=== PATIENT | male | born 1975 | race Hispanic/Latino ===

== ENCOUNTER 2022-04-07 20:04 | Emergency (ER) | payer OTHER ==
[~2022-04-07] VITALS: Ht 175.3 cm; Wt 92.1 kg
[2022-04-07 20:53] LABS: BASOPHILS % (AUTO) 0.6 % (0.0-5.0); HEMATOCRIT 42.2 % (42-54); LYMPHOCYTES % (AUTO) 36.5 % (21.0-51.0); MEAN CORPUSCULAR HEMOGLOBIN 27.2 pg (27.0-33.0); MEAN CORPUSCULAR HGB CONC 34.1 g/dL (32.0-36.0); MEAN CORPUSCULAR VOLUME 79.6 fL (79-99); MONOCYTES % (AUTO) 8.2 % (3.0-13.0); NEUTROPHILS % (AUTO) 51.7 % (40.0-77.0); PLATELET COUNT (AUTO) 292 K/uL (130-400); RED CELL DISTRIBUTION WIDTH 12.9 % (11.0-15.5); WHITE BLOOD COUNT (AUTO) 6.7 K/uL (4.8-10.8)
[2022-04-07 21:07] LABS: APPEARANCE,URINE CLEAR (CLEAR); BILIRUBIN,URINE NEGATIVE (NEGATIVE); COLOR,URINE YELLOW (YELLOW); GLUCOSE, URINE (UA) >=1000 mg/dL (NEGATIVE); KETONES,URINE NEGATIVE (NEGATIVE); LEUKOCYTE ESTERASE ,URINE NEGATIVE Leu/uL (NEGATIVE); NITRATE,URINE NEGATIVE (NEGATIVE); OCCULT BLOOD,URINE NEGATIVE (NEGATIVE); PROTEIN,URINE NEGATIVE (NEGATIVE); UROBILINOGEN,URINE 0.2 mg/dL (0.2-1.0)
[2022-04-07 21:08] LABS: CREATININE 1.2 mg/dL (0.5-1.5); POTASSIUM 3.9 mmol/L (3.5-5.1)
[2022-04-07 21:12] LABS: SQUAMOUS EPITHELIAL CELL,UR RARE /HPF (0-2); WBC,URINE 0-1 /HPF (0-1)
[2022-04-07 21:13] LABS: ALBUMIN 3.6 g/dL (3.5-5.0); TOTAL PROTEIN, SERUM 8.4 g/dL (6.0-8.3)
[2022-04-07] MEDS ORDERED: METH4TAB3 PO (22:57)
[2022-04-07 23:10] VITALS: BP 140/82
[2022-05-25] MEDS ORDERED: OMEP20CA12 PO (11:12)
[2022-05-25] MEDS ORDERED: METO-391 PO (11:12)
[2022-05-25] MEDS ORDERED: FINE20TA PO (11:12)
[2022-05-25] MEDS ORDERED: LOSA50TA64 PO (11:12)
[2022-05-25] MEDS ORDERED: ROSU20TA31 PO (11:12)
[2022-05-25] MEDS ORDERED: TIRZ2.5P SQ (11:12)
[2022-05-25] MEDS ORDERED: FLUT15.812 NS (11:12)
[2022-05-25] MEDS ORDERED: DAPA5TAB PO (11:12)
[2022-05-25] MEDS ORDERED: LORA-997 PO (11:12)
[2022-05-25] MEDS ORDERED: AEC81 PO (11:12)
[2022-05-28] MEDS ORDERED: NITR0.4T50 SL (10:41)
[2022-05-28] MEDS ORDERED: ALPR1TAB7 PO (10:41)
== END 2022-04-07 23:21 | disposition home or self-care (01) ==
LOC: EDH 20:04
DX: M94.0 Chondrocostal junction syndrome [Tietze] (principal); F41.9 Anxiety disorder, unspecified; F45.8 Other somatoform disorders; I11.0 Hypertensive heart disease with heart failure; I50.9 Heart failure, unspecified; E11.9 Type 2 diabetes mellitus without complications; E78.00 Pure hypercholesterolemia, unspecified
CPT/HCPCS: 36415; 71045; 80053; 81001; 84484; 85025; 93005

== ENCOUNTER → 2022-08-18 | Outpatient (CLI) | payer OTHER ==
[~2022-08-18] MED LIST: AEC81 PO; ALPR1TAB7 PO; AMIO200T44 PO; DAPA5TAB PO; FINE20TA PO; FLUT15.812 NS; FURO20TA6 PO; LORA-997 PO; LOSA50TA64 PO; METO25 PO; OMEP20CA12 PO; ROSU20TA31 PO; TIRZ2.5P SQ
== END | disposition home or self-care (01) ==
LOC: SHCH 08:56
PROVIDERS: ATTEND Student in an Organized Health Care Education/Training Program
DX: I97.130 Postprocedural heart failure following cardiac surgery (principal); I11.0 Hypertensive heart disease with heart failure; I50.9 Heart failure, unspecified; E11.9 Type 2 diabetes mellitus without complications; E78.5 Hyperlipidemia, unspecified
CPT/HCPCS: 93306

== ENCOUNTER 2025-01-11 06:50 | Day surgery (SDC) | payer OTHER ==
[2025-01-07 10:11] VITALS: BP 147/79; PULSE 80; RESP 18; TEMP 97.5
[2025-01-07 10:12] LABS: IMMATURE GRANULOCYTE ABSOLUTE 0.01 K/uL (0-1); NUCLEATED RED BLOOD CELLS 0.0 % (0.0-0.19); PLATELET COUNT (AUTO) 261 K/uL (130-400); RED BLOOD CELL COUNT(AUTO) 5.16 MIL/uL (4.50-6.20); RED CELL DISTRIBUTION WIDTH 14.1 % (11.0-15.5); WHITE BLOOD COUNT (AUTO) 6.8 K/uL (4.8-10.8)
[2025-01-07 10:21] LABS: INR 1.03 (0.85-1.15)
[2025-01-07 10:22] LABS: CREATININE 1.3 mg/dL (0.5-1.3); GLOMERULAR FILTR. RATE CALC 67.0 mL/min (>90); GLUCOSE,RANDOM 112.0 mg/dL (70-105); SODIUM SERUM 136.0 mmol/L (136-145); UREA NITROGEN, BLOOD 25.0 mg/dL (7-18)
[2025-01-07 10:30] LABS: APPEARANCE,URINE CLEAR (CLEAR); GLUCOSE, URINE (UA) >=1000 mg/dL (NEGATIVE); LEUKOCYTE ESTERASE ,URINE NEGATIVE Leu/uL (NEGATIVE); NITRATE,URINE NEGATIVE (NEGATIVE); OCCULT BLOOD,URINE NEGATIVE (NEGATIVE)
[2025-01-07 10:41] LABS: ADD UA MICROSCOPIC YES
--- NOTE | 2025-01-07 11:08 | EKG ---
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
--- NOTE | 2025-01-08 06:25 | HMCIMG ---
EXAM: CR Chest, 1 views. CLINICAL HISTORY: Cough. COMPARISON: None provided. FINDINGS: The lungs show no infiltrate or other acute findings. No pleural effusion or pneumothorax. The cardiomediastinal silhouette is within normal limits. No acute osseous abnormality. Radio-opaque sternal sutures are noted IMPRESSION: 1. No acute cardiopulmonary pathology is evident. - stable as compared to previous scan. /[place]
[2025-01-11] VITALS (9 sets, daily range): BP systolic 105–134; BP diastolic 61–75; PULSE 67–77; RESP 11–14; TEMP 97–97.9
[~2025-01-11] VITALS: Ht 175.3 cm; Wt 97.5 kg
[~2025-01-11 06:50] MED LIST changes: +0.9%NACL 1000ML 1,000 ML IV SCH; -ALPR1TAB7 PO; -AMIO200T44 PO; +ERGO500093 PO; -FLUT15.812 NS; -FURO20TA6 PO; -LORA-997 PO; +NITR0.4T50 SL; -OMEP20CA12 PO; -ROSU20TA31 PO; +ROSU20TA98 PO
[2025-01-11] MEDS ORDERED: LIDOCAINE HCL 400MG/20ML VIAL ONE (09:25)
[2025-01-11] MEDS ORDERED: IOHEXOL 350 MG/ML 100ML INFUS..BTL IV ONE ×2 (09:25→10:32)
[2025-01-11] MEDS ORDERED: HEParin-NS 1,000 UNIT/500 ML 1,000 ML IV ONE (09:25)
[2025-01-11] MEDS ORDERED: VERAPAMIL HCL 2.5 MG/ML VIAL ONE (09:25)
[2025-01-11] MEDS ORDERED: NITROGLYCERIN 50MG VIAL ONE (09:26)
[2025-01-11] MEDS ORDERED: MIDAZOLAM HCL 1 MG/ML 2ML VIAL ONE ×2 (09:46→09:59)
[2025-01-11] MEDS ORDERED: IOHEXOL-350 50ML VIAL IV ONE (10:33)
[2025-01-11] MEDS ORDERED: DEXTROSE 50%-WATER 50 ML DISP.SYRIN IV PRN (11:00)
[2025-01-11] MEDS ORDERED: GLUCAGON 1MG KIT 1 MG ML IM PRN (11:00)
--- NOTE | 2025-01-11 11:13 | PRN ---
PROCEDURE REPORT DATE OF PROCEDURE: Jan 11, 2025 CAB STARTER: [Gopal gaona MD ] PROCEDURE PERFORMED: Conscious sedation Ultrasound guided left radial artery access Left subclavian angiogram Selective left coronary artery angiogram Selective right coronary artery angiogram Left heart catheterization Selective AREVALO to LAD angiogram Selective SVG to D1 angiogram Selective SVG to OM and PDA angiogram Aortogram TR band 13 fan over left radial artery INDICATION: Abnormal coronary CTA DESCRIPTION OF PROCEDURE: After informed consent was obtained, the patient was prepped and draped in the usual sterile fashion. A 6 [place] arterial sheath was inserted in the left radial artery using ultrasound guidance with first pass wall puncture. The arterial sheath was aspirated and flushed. A 5F Bartorelli cath was advanced over the wire and parked in the ostial left subclavian followed by an angiogram. We then used this catheter to select engage the AERVALO graft followed by multiple angiographic images. We exchanged this catheter for 6F JR-4 catheter advanced into the LV and pressures were obtained with a pull-back across the aortic valve. We then used the JR4 catheter select engage the [place] RCA followed by multiple angiographic images. We then used the same catheter select engage the SVG to diagonal graft followed by multiple angiographic images. We used the same catheter to engage the OM grafts which were occluded at the ostium but we are unable to cannulate the PDA graft. We exchanged the JR4 catheter for a six [place] RCB with similar results. We exchanged this catheter for a six [place] JL 3.5 diagnostic catheters was advanced over the wire and used to engage the left main coronary artery followed by multiple angiographic images. At this time we exchanged the diagnostic catheter for a six [place] angled pigtail catheter and performed an aortogram confirming flush occlusions of the vein graft to the PDA and OM2. Given these findings and excessive contrast use the decision was made to terminate the procedure so all wires and catheters removed from the body and a TR band was placed over the left radial artery with patent hemostasis. Patient tolerated procedure well with no postprocedure complication was transferred to rn cardiac cath holding in stable condition. FLUOROSCOPY TIME: 9.7 min LEFT HEART HEMODYNAMICS: LVEDP 16 mm Hg and no gradient Ao CORONARY ANGIOGRAM: LEFT MAIN: Patent, calcified and small veseel with diffise 20-30% stenosis. Gives rise to LCx and LAD. LEFT ANTERIOR DESCENDING: Large vessel giving rise to two Diagonal branches. Calcified with proximal 99% stenosis becoming 100% FINGER WAVER prior to the 1st D1 takeoff. Fills distally via a patent AREVALO graft. LEFT CIRCUMFLEX: Large and gives rise to two OM branches. Ostial prox 40-50% stenosis. OM1 has proximal stenosis 40- 50%. OM2 has an ostial flush FINGER WAVER with no competitive flow distally. RIGHT CORONARY ARTERY: Large, dominant vessel which was heavily and diffusely calcified giving rise to PDA and PL branches. 80-85% ostial, mid, and distal stenosis. These lesions are long diffuse and calcified. The PDA has mild diffuse disease in the PLB has a small-vessel. LEFT SUBCLAVIAN: Calcified with 20-30% stenosis. No gradient on pullback GRAFT ANATOMY: AREVALO-LAD: Patent SVG-D1: Patent SVG-OM1: Occluded at the ostium SVG-Om2: Occluded at the ostium SVG-PDA: Occluded at the ostium HEMOSTASIS: TR band 12 fan over left radial artery INTERVENTIONS: None. COMPLICATIONS: None FINDINGS: Normal coronary anatomy and severe multivessel CAD with patent AREVALO to LAD and SVG to D1 graft. SVG to OM1, OM2 and PDA have ostial occlusions. ESTIMATED BLOOD LOSS: 5 cc RECOMMENDATIONS/INSTRUCTIONS: Aggressive risk factor modification. Optimize GDT and consider Lexiscan stress test for inferior ischemia Given his minimal symptoms and excessive contrast use we will consider Lexiscan stress test and if ischemic in the inferior territory we will consider PCI of the RCA (this will require multiple stents) CONTRAST DELIVERED TO PATIENT (mL): 210cc MD DARÍO Mirza JAMES R MD Jan 11, 2025 11:13
[2025-01-11] MEDS: 0.9%NACL 1000ML 1,000 ML IV SCH (11:40)
--- NOTE | 2025-01-11 14:49 | NUR ---
Full and complete discharge instructions given to Patient and Family both verbally and in writing. Explained Angiogram procedure precautions and follow up. Left Radial site clean dry and intact. No evidence of bleeding, bruising or hematoma. Radial pulses intact to BUE's. All questions answered. PIV removed with catheter tip intact. at bedside appearing supportive. W/C to POV with to home
== END 2025-01-11 14:58 | disposition home or self-care (01) ==
LOC: DAH 06:50
PROVIDERS: ATTEND Student in an Organized Health Care Education/Training Program
DX: R93.1 Abnormal findings on diagnostic imaging of heart and coronary circulation (principal); I25.118 Atherosclerotic heart disease of native coronary artery with other forms of angina pectoris; I25.82 Chronic total occlusion of coronary artery; I11.0 Hypertensive heart disease with heart failure; I50.9 Heart failure, unspecified; E78.2 Mixed hyperlipidemia; I45.10 Unspecified right bundle-branch block; R06.09 Other forms of dyspnea; E11.51 Type 2 diabetes mellitus with diabetic peripheral angiopathy without gangrene; Z95.1 Presence of aortocoronary bypass graft; Z79.899 Other long term (current) drug therapy
CPT/HCPCS: 80048; 83880; 85025; 85610; 85730; 81001; 36415; 71045; 93005; 93459; 82948 ×2; 99156; 99157 ×3; C1769; C1887; C1894; J3010; J3490 ×3; J1644 ×2; J2250 ×2; Q9967 ×2; A4215; A4222; A6260; A4221; A4663; A4216; A6258; A4606; Q9965 ×2; A4223 ×3; 96360; 96361